=== PATIENT | female | born 1950 | race Hispanic/Latino ===

== ENCOUNTER 2016-11-28 16:46 | Emergency (ER) | payer MEDICARE ==
[2016-11-28 16:47] VITALS: BMI 33.3
--- NOTE | 2016-11-28 17:11 | ED PDOC ---
Arrival/HPI - General Time Seen by Provider: 11/28/16 16:48 Historian: Patient - History of Present Illness Narrative History of Present Illness (Text): 11/28/16 17:26 This 66 yo female with pmh neuropathy, presents to this ED c/o right lower leg swelling and calf pain x 6 days. Patient noted swelling has been gradually worsen. Denies trauma, skin rash, recent surgical procedure, recent travel, sick contact, blood disorder, heart problems, kidney problems, dizziness, sob, cp, or abnormal gait. Time/Duration: < week Symptom Course: Worsening Quality: Aching Context: Home Past Medical History - Provider Review Nursing Documentation Reviewed: Yes - Infectious Disease Hx of Infectious Diseases: None - Tetanus Immunization Tetanus Immunization: Unknown - Cardiac Hx Hypertension: Yes - Endocrine/Metabolic Hx Hypothyroidism: Yes - Musculoskeletal/Rheumatological Hx Falls: No - Psychiatric Hx Depression: No Hx Emotional Abuse: No Hx Physical Abuse: No Hx Substance Use: No - Surgical History Hx Appendectomy: Yes Hx Hysterectomy: Yes Hx Tonsillectomy: Yes - Suicidal Assessment Feels Threatened In Home Enviroment: No Family/Social History - Physician Review Nursing Documentation Reviewed: Yes Family/Social History: No Known Family HX Hx Alcohol Use: No Hx Substance Use: No Hx Substance Use Treatment: No Allergies/Home Meds Allergies/Adverse Reactions: Allergies amoxicillin Allergy (Severe, Verified 11/28/16 17:33) ANAPHYLAXIS clavulanic acid Allergy (Severe, Verified 11/28/16 17:33) ANAPHYLAXIS Sulfa (Sulfonamide Antibiotics) Allergy (Severe, Verified 11/28/16 17:33) ANAPHYLAXIS Home Medications: Home Meds Medication Instructions Recorded Confirmed Levothyroxine [Synthroid] 0.15 mg PO DAILY 12/25/11 11/28/16 Pregabalin [Lyrica] 50 mg PO BID 11/28/16 11/28/16 amLODIPine [Norvasc] 5 mg PO DAILY 11/28/16 11/28/16 Review of Systems - Review of Systems Constitutional: Normal. absent: Fatigue, Weight Change, Fevers, Night Sweats Eyes: Normal ENT: Normal Respiratory: Normal. absent: SOB, Cough, Sputum, Wheezing Cardiovascular: Normal. absent: Chest Pain, Palpitations Gastrointestinal: Normal. absent: Abdominal Pain, Nausea, Vomiting Genitourinary Female: Normal. absent: Dysuria, Frequency, Hematuria Musculoskeletal: Other (right lower leg swelling, and right calf pain) Skin: Normal. absent: Rash, Pruritis, Skin Lesions Neurological: Normal Endocrine: Normal Hemo/Lymphatic: Normal Psychiatric: Normal Physical Exam Vital Signs Temp Pulse Resp BP Pulse Ox 11/28/16 19:14 69 16 145/82 98 11/28/16 16:47 98.2 F 67 18 147/84 97 Temperature: Afebrile Blood Pressure: Normal Pulse: Regular Respiratory Rate: Normal Appearance: Positive for: Well-Appearing, Non-Toxic, Comfortable Pain Distress: None Mental Status: Positive for: Alert and Oriented X 3 - Systems Exam Head: Present: Atraumatic, Normocephalic Pupils: Present: PERRL Extroacular Muscles: Present: EOMI Conjunctiva: Present: Normal Mouth: Present: Moist Mucous Membranes Neck: Present: Normal Range of Motion Respiratory/Chest: Present: Clear to Auscultation, Good Air Exchange. No: Respiratory Distress, Accessory Muscle Use, Wheezes, Rales, Retracting, Rhonchi Cardiovascular: Present: Regular Rate and Rhythm, Normal S1, S2. No: Murmurs Abdomen: Present: Normal Bowel Sounds. No: Tenderness, Distention, Peritoneal Signs, Rebound, Guarding Back: Present: Normal Inspection. No: CVA Tenderness Upper Extremity: Present: Normal Inspection, Normal ROM, NORMAL PULSES, Neurovascularly Intact, Capillary Refill < 2s. No: Cyanosis, Edema Lower Extremity: Present: NORMAL PULSES, Normal ROM, Swelling, Temperature Abnormalties (mild warmth anterior right knee joint. no erythema, ecchymosis. No septic knee joint.). No: Edema, CALF TENDERNESS, Katlin's Sign, Erythema, Deformity Neurological: Present: GCS=15, CN II-XII Intact, Speech Normal, Motor Func Grossly Intact, Normal Sensory Function, Normal Cerebellar Funct Skin: Present: Warm, Dry, Normal Color. No: Rashes Psychiatric: Present: Alert, Oriented x 3, Normal Insight, Normal Concentration Medical Decision Making ED Course and Treatment: 11/28/16 16:45 Re-evaluation. Patient feels better. Discussed results and plan with patient who expresses understanding. All questions answered and there is agreement with the plan to discharge home with instructions. Patient stable for discharge. Return if symptoms persist or worsen. Patient came c/o right lower leg swelling, and right calf pain. Physical exam demonstrates right knee joint tenderness, with mild warmth on knee joint on palpation. No septic knee joint. No knee cellulitis. No knee skin rash. Knee has FROM, although with mild pain when over flexing right knee. Re-evaluation Time: 18:46 Reassessment Condition: Re-examined, Improved - RAD Interpretation Narrative RAD Interpretations (Text): 11/28/16 18:40 Venous Doppler Lower extremity: (+) Perez's Cyst. No DVT Knee X-rays: Normal ST. Mild DJD. No Fx. or Sublux. Radiology Orders: 11/28/16 17:37 KNEE W PATELLA RIGHT 3 VIEW [RAD] Stat 11/28/16 17:39 DUPLEX LOWER EXTRM VEIN RIGHT [US] Stat - Medication Orders Current Medication Orders: Discontinued Medications Ketorolac Tromethamine (Toradol) 15 mg IM STAT STA Stop: 11/28/16 19:00 Last Admin: 11/28/16 19:20 Dose: 15 mg Disposition/Present on Arrival - Present on Arrival Any Indicators Present on Arrival: No History of DVT/PE: No History of Uncontrolled Diabetes: No Urinary Catheter: No History Surgical Site Infection Following: None - Disposition Have Diagnosis and Disposition been Completed?: Yes Diagnosis: Knee pain, acute, Localized swelling of both lower legs, Perez's cyst of knee Disposition: HOME/ ROUTINE Disposition Time: 18:47 Patient Plan: Discharge Condition: IMPROVED Discharge Instructions (ExitCare): Perez's Cyst (ED), Leg Edema (ED), Knee Pain (ED) Additional Instructions: Call private doctor for follow up visit in 1-2 days. Keep right leg and knee elevated as much as you can for 5- 7 days. Apply cold compress to right knee. Take medication as instructed. Return to emergency if symptoms worsen. Call Dr. Peña Orthopedist for revaluation of right knee pain Prescriptions: Famotidine [Pepcid] 40 mg PO DAILY #10 tablet Naproxen Sodium [Aleve] 220 mg PO Q8H PRN #30 capsule PRN Reason: Pain, Severe (8-10) Referrals: Ramsey Steen MD [Primary Care Provider] - Follow up with primary Orion Peña DO [Staff Provider] - Follow up with primary
[2016-11-28 17:15] VITALS: TEMP 98.2
[2016-11-28 19:15] VITALS: BP 145/82; PULSE 69; RESP 16; O2SAT 98
--- NOTE | 2016-11-29 08:32 | RAD ---
PROCEDURE: Right Knee Radiographs. HISTORY: pain COMPARISON: None. FINDINGS: BONES: Normal. No fracture. JOINTS: Medial and patellofemoral osteoarthritis with joint space narrowing and marginal osteophyte formation. Irregularity of the patellar articular surface. JOINT EFFUSION: Minimal joint effusion. Nonspecific. OTHER FINDINGS: None. IMPRESSION: No evidence of acute fracture. Medial and patellofemoral osteoarthritis. Minimal joint effusion, nonspecific.
--- NOTE | 2016-11-29 08:37 | US ---
PROCEDURE: Right lower extremity venous US HISTORY: Leg pain and swelling. Evaluate for DVT. PHYSICIAN(S): Andres Gant M.D. TECHNIQUE: Duplex sonography and color-flow Doppler with graded compression were used to evaluate the deep venous system of the right lower extremity. FINDINGS: The visualized deep venous system of the right lower extremity is sonographically normal and compressible. Normal waveforms and augmentation are seen. There is no sonographic evidence for deep venous thrombosis in the visualized segments of the right lower extremity. There is a 1.1 x 3.1 cm fluid collection in the right popliteal fossa, consistent with a Perez's cyst IMPRESSION: 1. No sonographic evidence for deep venous thrombosis in the visualized segments of the right lower extremity.
== END 2016-11-28 19:20 | disposition home or self-care (01) ==
LOC: ED 16:46
DX: M79.604 Pain in right leg (principal); M71.21 Synovial cyst of popliteal space [Baker], right knee; M79.89 Other specified soft tissue disorders; I10 Essential (primary) hypertension
CPT/HCPCS: 73562; 93971; 96372; 99284; J1885

== ENCOUNTER 2017-10-04 15:18 | Emergency (ER) | payer MEDICARE ==
[2017-10-04 15:18] VITALS: BMI 36.9
[2017-10-04 15:52] VITALS: BP 126/78; PULSE 82; RESP 18; TEMP 98.2; O2SAT 100
--- NOTE | 2017-10-04 16:14 | ED PDOC ---
Arrival/HPI - General Chief Complaint: Abnormal Skin Integrity Time Seen by Provider: 10/04/17 15:46 - History of Present Illness Narrative History of Present Illness (Text): 67 y/o F c PMHx thyroid disease, childhood chicken pox p/w L sided thoracic rash x today. Patient states she had a pain in the area prior but thought it was a pulled muscle. Today, when preparing for shower, saw rash in area of pain and came to ED. Denies fever, other rashes, vomiting. Past Medical History - Infectious Disease Hx of Infectious Diseases: None - Tetanus Immunization Tetanus Immunization: Unknown - Cardiac Hx Cardiac Disorders: Yes Hx Hypertension: Yes - Pulmonary Hx Respiratory Disorders: No - Neurological Hx Neurological Disorder: Yes Other/Comment: Neuropathy - HEENT Hx HEENT Disorder: No - Renal Hx Renal Disorder: No - Endocrine/Metabolic Hx Hypothyroidism: Yes - Hematological/Oncological Hx Blood Disorders: No - Integumentary Hx Dermatological Disorder: No - Musculoskeletal/Rheumatological Hx Arthritis: Yes - Gastrointestinal Hx Gastrointestinal Disorders: No - Genitourinary/Gynecological Hx Genitourinary Disorders: No - Psychiatric Hx Psychophysiologic Disorder: No Hx Substance Use: No - Surgical History Hx Appendectomy: Yes (AT AGE 10YRS. OLD) Hx Hysterectomy: Yes Hx Thyroidectomy: Yes (AT AGE 18YRS. OLD-FROM GOITER) Hx Tonsillectomy: Yes (AT AGE 2YRS. OLD) - Anesthesia Hx Anesthesia: Yes Hx Anesthesia Reactions: No Hx Malignant Hyperthermia: No - Suicidal Assessment Feels Threatened In Home Enviroment: No Family/Social History Family/Social History: No Known Family HX Smoking Status: Never Smoked Hx Alcohol Use: No Hx Substance Use: No Hx Substance Use Treatment: No Allergies/Home Meds Allergies/Adverse Reactions: Allergies amoxicillin [From Augmentin] Allergy (Severe, Verified 02/15/17 10:27) VOMITING clavulanic acid Allergy (Severe, Verified 11/28/16 17:33) ANAPHYLAXIS Sulfa (Sulfonamide Antibiotics) Allergy (Severe, Verified 02/15/17 10:27) ITCHING Home Medications: Home Meds Medication Instructions Recorded Confirmed Levothyroxine [Synthroid] 0.15 mg PO DAILY 12/25/11 02/19/17 Pregabalin [Lyrica] 50 mg PO BID 11/28/16 02/19/17 amLODIPine [Norvasc] 10 mg PO DAILY 11/28/16 02/19/17 Triamterene/Hydrochlorothiazid 1 tab PO DAILY 02/15/17 02/19/17 [Triamterene-Hctz 37.5-25 mg Cp] Review of Systems - Physician Review All systems were reviewed & negative as marked: Yes - Review of Systems Constitutional: absent: Fevers Cardiovascular: absent: Chest Pain Physical Exam - Physical Exam Narrative Physical Exam (Text): Gen: NAD Head: NC Eyes: No lesions ENT: No nose or ear lesions CV: Regular rate Resp: No accessory muscle use Abd: Soft Skin: L sided abdominal rash, clusters of erythematous papules in 1 dermatome Neuro: Alert, no focal deficit Vital Signs Temp Pulse Resp BP Pulse Ox 10/04/17 15:50 98.2 F 82 18 126/78 100 Medical Decision Making ED Course and Treatment: Instructed to f/u with PMD, watch for new rashes especially on face or super infection. Disposition/Present on Arrival - Present on Arrival Any Indicators Present on Arrival: No History of DVT/PE: No History of Uncontrolled Diabetes: No Urinary Catheter: No History of Decub. Ulcer: No History Surgical Site Infection Following: None - Disposition Have Diagnosis and Disposition been Completed?: Yes Diagnosis: Shingles Disposition: HOME/ ROUTINE Disposition Time: 16:14 Patient Plan: Discharge Condition: STABLE Discharge Instructions (ExitCare): Shingles (ED) Prescriptions: Acyclovir [Zovirax] 800 mg PO 5XD #34 tab oxyCODONE/Acetaminophen [Percocet 5/325 mg Tab] 1 tab PO Q6 #10 tab
== END 2017-10-04 16:39 | disposition home or self-care (01) ==
LOC: ED 15:18
DX: B02.9 Zoster without complications (principal)

== ENCOUNTER 2018-01-11 17:30 | Emergency (ER) | payer MEDICARE ==
[2018-01-11 17:31] VITALS: BMI 36.9
[2018-01-11 17:53] VITALS: RESP 18
--- NOTE | 2018-01-11 18:35 | ED PDOC ---
Arrival/HPI - General Chief Complaint: Dental Pain Time Seen by Provider: 01/11/18 17:44 - History of Present Illness Narrative History of Present Illness (Text): 01/11/18 18:32 Patient is a 67 yo F presents to emergency department due to gingival overgrowth over denture. Patient states that this has been an on going issue for the last few years and when this occurs she cannot remove the denture. Patient states that she typically goes to her PMD, Dr. Son and he gives her clindamycin, which resolves her issue. Patient states that she has not been evaluated by a dentist due to financial reasons. Patient states that there is a small cut on her upper right gum, but pain is minimal. Patient denies chest pain , shortness of breath, nausea, vomiting, abdominal pain, fever, chills, headache , or dizziness. PMD: Adelaida Past Medical History - Infectious Disease Hx of Infectious Diseases: None - Tetanus Immunization Tetanus Immunization: Unknown - Reproductive Menopause: Yes - Cardiac Hx Cardiac Disorders: Yes Hx Hypertension: Yes - Pulmonary Hx Respiratory Disorders: No - Neurological Hx Neurological Disorder: Yes Other/Comment: Neuropathy - HEENT Hx HEENT Disorder: No - Renal Hx Renal Disorder: No - Endocrine/Metabolic Hx Hypothyroidism: Yes - Hematological/Oncological Hx Blood Disorders: No - Integumentary Hx Dermatological Disorder: No - Musculoskeletal/Rheumatological Hx Arthritis: Yes - Gastrointestinal Hx Gastrointestinal Disorders: No - Genitourinary/Gynecological Hx Genitourinary Disorders: No - Psychiatric Hx Psychophysiologic Disorder: No Hx Substance Use: No - Surgical History Hx Appendectomy: Yes (AT AGE 10YRS. OLD) Hx Hysterectomy: Yes Hx Thyroidectomy: Yes (AT AGE 18YRS. OLD-FROM [facility]) Hx Tonsillectomy: Yes (AT AGE 2YRS. OLD) - Anesthesia Hx Anesthesia: Yes Hx Anesthesia Reactions: No Hx Malignant Hyperthermia: No - Suicidal Assessment Feels Threatened In Home Enviroment: No Family/Social History Family/Social History: No Known Family HX Smoking Status: Never Smoked Hx Alcohol Use: No Hx Substance Use: No Hx Substance Use Treatment: No Allergies/Home Meds Allergies/Adverse Reactions: Allergies amoxicillin [From Augmentin] Allergy (Severe, Verified 01/11/18 17:54) VOMITING clavulanic acid Allergy (Severe, Verified 01/11/18 17:54) ANAPHYLAXIS Sulfa (Sulfonamide Antibiotics) Allergy (Severe, Verified 01/11/18 17:54) ITCHING Home Medications: Home Meds Medication Instructions Recorded Confirmed Levothyroxine [Synthroid] 0.15 mg PO DAILY 12/25/11 01/11/18 Pregabalin [Lyrica] 150 mg PO BID 11/28/16 01/11/18 amLODIPine [Norvasc] 10 mg PO DAILY 11/28/16 01/11/18 Triamterene/Hydrochlorothiazid 1 tab PO DAILY 02/15/17 01/11/18 [Triamterene-Hctz 37.5-25 mg Cp] Review of Systems - Physician Review All systems were reviewed & negative as marked: Yes (12 point ROS reviewed and is negative other than what is stated in HPI.) Physical Exam Vital Signs Reviewed: Yes Vital Signs Temp Pulse Resp BP Pulse Ox 01/11/18 17:52 98.2 F 67 18 155/90 H 97 Temperature: Afebrile Blood Pressure: Normal Pulse: Regular Respiratory Rate: Normal Appearance: Positive for: Non-Toxic Pain Distress: Mild Mental Status: Positive for: Alert and Oriented X 3 - Systems Exam Head: Present: Atraumatic, Normocephalic Pupils: Present: PERRL Extroacular Muscles: Present: EOMI Conjunctiva: Present: Normal Mouth: Present: Moist Mucous Membranes, Other (gingival overgrowth upper anterior, no signs of erythema, no TTP) Pharnyx: Present: Normal Neck: Present: Normal Range of Motion Respiratory/Chest: Present: Clear to Auscultation Cardiovascular: Present: Regular Rate and Rhythm, Normal S1, S2. No: Murmurs, Rub, Gallop Abdomen: No: Tenderness, Distention, Rebound, Guarding Upper Extremity: Present: Normal Inspection Lower Extremity: Present: Normal Inspection Neurological: Present: GCS=15, CN II-XII Intact, Speech Normal Skin: Present: Warm, Dry, Normal Color Psychiatric: Present: Alert, Oriented x 3, Normal Insight, Normal Concentration Medical Decision Making ED Course and Treatment: 01/11/18 18:39 67 yo F presents to Emergency department with gingival overgrowth of her dentures. Plan: Amoxicillin allergy was discussed with patient. Patient stated that allergy was one time with Augmentin, where she had vomiting. Patient denies any signs of anaphylaxis or angioedema. It was discussed with patient that her symptoms were not a true allergy. Rx for penicillin VK was offered to the patient. The risks and benefits were explained and signs to look out for in case there is an allergic reaction. Patient agreed to the medication. Patient was advised to follow up with her PMD and dentist as soon as possible. Patient was discharged. Disposition/Present on Arrival - Present on Arrival Any Indicators Present on Arrival: No History of DVT/PE: No History of Uncontrolled Diabetes: No Urinary Catheter: No History of Decub. Ulcer: No History Surgical Site Infection Following: None - Disposition Have Diagnosis and Disposition been Completed?: Yes Diagnosis: Pain, dental, Denture irritation, Overgrowth of gums Disposition: HOME/ ROUTINE Disposition Time: 18:42 Patient Plan: Discharge Patient Problems: Current Active Problems Problem Status Onset Denture irritation Acute Overgrowth of gums Acute Pain, dental Acute Condition: STABLE Discharge Instructions (ExitCare): Dental Pain (DC) Additional Instructions: 1. Follow up with PMD as soon as possible 2. Complete 10 day course of penicillin 3. If any signs of allergy start including, but not limited to itching, hives, shortness of breath, airway compromise discontinue medicine and seek evaluation at Emergency department 4. Return to Emergency department if symptoms worsen MICHAEL PAIGE, thank you for letting us take care of you today. Your provider was Lloyd Callahan MD and you were treated for CYST IN MOUTH. The emergency medical care you received today was directed at your acute symptoms. If you were prescribed any medication, please fill it and take as directed. It may take several days for your symptoms to resolve. Return to the Emergency Department if your symptoms worsen, do not improve, or if you have any other problems. Please contact your doctor or call one of the physicians/clinics you have been referred to that are listed on the Patient Visit Information form that is included in your discharge packet. Bring any paperwork you were given at discharge with you along with any medications you are taking to your follow up visit. Our treatment cannot replace ongoing medical care by a primary care provider outside of the emergency department. Thank you for allowing the [facility] team to be part of your care today. Prescriptions: Penicillin VK [Penicillin VK Tab] 500 mg PO BID #20 tab Referrals: PCP,NO [Primary Care Provider] - Follow up with primary
[2018-01-11 18:37] VITALS: BP 120/79; PULSE 78; TEMP 98.5; O2SAT 99
== END 2018-01-11 18:36 | disposition home or self-care (01) ==
LOC: ED 17:30
DX: K08.89 Other specified disorders of teeth and supporting structures (principal); I10 Essential (primary) hypertension; E03.9 Hypothyroidism, unspecified